=== PATIENT | male | born 1990 ===

== ENCOUNTER 2020-10-11 06:47 | Day surgery (SDC) | payer OTHER ==
[~2020-10-11] VITALS: Ht 175.3 cm; Wt 61.9 kg
[2020-10-11] MEDS ORDERED: PREDNISONE10 MG PO (06:58)
[2020-10-11] MEDS ORDERED: BENTYL 10MG10 MG/CAP PO (06:59)
[2020-10-11 07:00] VITALS: BP 115/76; PULSE 86; TEMP 98.5
[2020-10-11 08:50] VITALS: BP 96/63; PULSE 70; TEMP 98.1
--- NOTE | 2020-10-11 08:50 | NUR ---
0850 Pt returns from endo procedure via cart. Pt ambulates from cart to recliner with RN assist. Pt alert and oriented. Monitors on and alarms set. Call light within reach. Report received from PAULINA Magdaleno. Pt requests juice, muffin, and applesauce. Pt denies complaints of pain or nausea. 0915 Pt taking food and drink well. No complications voiced. 0955 Pt requests to use restroom to get C. diff sample per Dr. August. Pt ambulates to restroom with RN assist without complication. 1015 Pt returns from restroom without complication. 1020 Pt requests additional muffin and juice. Discharge instructions given to pt. All questions answered to his satisfaction. 1032 Pt transferred out of hospital via wheelchair and this RN assist to private vehicle driven by friend.
[2020-10-11 09:00] VITALS: BP 123/72; PULSE 81
[2020-10-11 09:15] VITALS: BP 114/62; PULSE 76
[2020-10-11 09:30] VITALS: BP 114/73; PULSE 82
[2020-10-11 09:45] VITALS: BP 114/66; PULSE 85
--- NOTE | 2020-10-11 09:46 | NUR ---
Initial visit; Patient thanked Car Groomer for offering prayer prior to his 'Procedure.' Car Groomer wished patient well.
[2020-10-11 11:29] LABS: CLOSTRIDIUM DIFF A/B NEG; CLOSTRIDIUM DIFF A/B INTERP No C.diff present
== END 2020-10-11 11:52 | disposition home or self-care (01) ==
LOC: SDCO 06:47
PROVIDERS: Internal Medicine Gastroenterology
DX: K51.011 Ulcerative (chronic) pancolitis with rectal bleeding (principal); Z79.899 Other long term (current) drug therapy
CPT/HCPCS: J2704; J7120